=== PATIENT | female | born 1985 | race Caucasian/White ===

== ENCOUNTER 2025-03-04 18:11 | Emergency (ER) | payer BC ==
[~2025-03-04] VITALS: Ht 170.2 cm; Wt 90.9 kg
[2025-03-04 18:41] VITALS: BP 161/92
[2025-03-04] MEDS: NITROGLYCERIN 0.4 MG SUBL TABLET SL PRN (18:41)
[2025-03-04 18:58] LABS: BASO # 0.0 10^3/uL (0.0-0.2); BASO % 0.6 % (0.0-1.0); EOS # 0.1 10^3/uL (0.0-0.5); EOS % 1.1 % (0.0-3.0); LYMPH # 1.5 10^3/uL (1.5-5.0); LYMPH % 22.5 % (24.0-44.0); MONO # 0.6 10^3/uL (0.0-0.8); MONO % 8.4 % (2.0-8.0); NEUTROPHILS # 4.5 10^3/uL (1.5-8.5); NEUTROPHILS % 67.1 % (36.0-66.0); PLATELET COUNT, AUTOMATED 215 10^3/uL (150-450)
[2025-03-04 19:21] LABS: CALCIUM LEVEL 8.7 MG/DL (8.5-10.1); CARBON DIOXIDE LEVEL 25 MMOL/L (20-31); CHLORIDE LEVEL 107 MMOL/L (98-107); CK-MB VALUE MASS < 1.0 NG/ML (<3.6); CREATININE FOR GFR 0.89 MG/DL (0.55-1.30); GLOMERULAR FILTRATION RATE 85.1 (>60); POTASSIUM SERUM 4.1 MMOL/L (3.5-5.1); SODIUM LEVEL 143 MMOL/L (136-145)
[2025-03-04 19:30] LABS: CPK CREATINE PHOSPHOKINASE 68 U/L (34-145)
[2025-03-04] MEDS ORDERED: ISOVUE-370 76% 100 ML VIAL As Ordered ONE (19:39)
[2025-03-04 20:15] LABS: CK-MB VALUE MASS < 1.0 NG/ML (<3.6)
[2025-03-04 20:17] LABS: CPK CREATINE PHOSPHOKINASE 73 U/L (34-145)
[2025-03-04] MEDS ORDERED: HOME MED LIST COMPLETE! XX SCH (20:25)
[2025-03-04 21:45] VITALS: BP 120/81; TEMP 97.1; O2SAT 99
== END 2025-03-04 21:59 | disposition home or self-care (01) ==
LOC: M ED 18:11 → EDBD 18:11 → M ED 21:59
DX: R07.9 Chest pain, unspecified (principal); Z88.1 Allergy status to other antibiotic agents
CPT/HCPCS: 36415; 71045; 71275; 80048; 82550; 82553; 84484; 85025; 93005; 93041; 94760; 99285; Q9967